=== PATIENT | male | born 1965 ===

== ENCOUNTER 2019-12-15 22:59 | Emergency (ER) | payer BC ==
--- NOTE | 2019-12-15 23:10 | EDM.PDOC ---
ED HPI GENERAL MEDICAL PROBLEM - General Chief Complaint: Back Pain or Injury Stated Complaint: BACK PAIN Time Seen by Provider: 12/15/19 23:07 Source of Information: Reports: Patient History Limitations: Reports: No Limitations - History of Present Illness INITIAL COMMENTS - FREE TEXT/NARRATIVE: Patient is a 54-year-old male who comes in complaining of having severe pain which started somewhat last night and got much worse today when he jumped off his tractor this afternoon. Pain seems to be right lower back and he was seen by PCP who who gave him a prescription for [place] after ordering thoracic and lumbar spine x-rays. These were read as no acute disease. he does have rheumatoid arthritis and there were some arthritic changes. Patient returns to the ER today after he is vomiting and now has severe diffuse abdominal pain and CVA area tenderness. Patient is extremely uncomfortable rates his pain as 10 out of 10 in intensity. He denies any diarrhea or bloody or tarry stools. Patient has no hematuria or dysuria. Never had similar pain and denies any radiation of the pain. The [place] he took earlier did help with the pain but started the vomiting. Has no other complaints back Pain Score (Numeric/FACES): 8 - Related Data Allergies Allergy/AdvReac Type Severity Reaction Status Date / Time Sulfa (Sulfonamide Allergy Rash Verified 12/15/19 23:14 Antibiotics) Home Meds: Home Meds Diclofenac Sodium [Diclo Gel] 1 each TP ASDIRECTED 12/15/19 [History] Hydrocodone/Acetaminophen [Hydrocodone-Acetamin 5-325 mg] 1 tab PO Q6H PRN 12/14 [History] Hydroxychloroquine [Plaquenil] 200 mg PO BID 12/15/19 [History] Methotrexate 0.4 mg PO WEEKLY 12/15/19 [History] methylPREDNISolone [Methylprednisolone] 4 mg PO ASDIRECTED 12/15/19 [History] Cyclobenzaprine [Flexeril] 5 mg PO TID PRN #14 tab 12/16/19 [Rx] Lidocaine 5% [Lidoderm 5%] 1 patch TOP DAILY #14 patch 12/16/19 [Rx] Ondansetron [Zofran ODT] 4 mg PO Q6H PRN #10 tab.dis 12/16/19 [Rx] ED ROS GENERAL - Review of Systems Review Of Systems: Comprehensive ROS is negative, except as noted in HPI. ED EXAM,LOWER BACK PAIN/INJURY - Physical Exam Exam: See Below Exam Limited By: No Limitations General Appearance: Moderate Distress Head: Atraumatic, Normocephalic Neck: Normal Inspection, Supple Respiratory/Chest: No Respiratory Distress, Lungs Clear, Normal Breath Sounds Cardiovascular: Regular Rate, Rhythm, No JVD GI/Abdominal: No Organomegaly, No Mass, Rebound, Tender Back Exam: Normal Inspection, CVA Tenderness (R), Decreased Range of Motion, Muscle Spasm Extremities: Normal Inspection Neurological: Alert, Normal Mood/Affect Skin Exam: Warm, Dry Course - Vital Signs Text/Narrative:: Patient was given IV fluids and several doses of pain meds. His lab work is all unremarkable. CT of his abdomen pelvis shows a large amount of stool and has ascending and transverse colon otherwise no acute disease. His abdominal pain has gotten much better and is almost completely gone but his pain now is in his lumbar area consistent with a sacroiliitis. Putting a Lidoderm patch on him giving him Flexeril. I will give him a prescription for Zofran patient on Flexeril. He has a prescription for [place] from his PCP. I am advising him to take ibuprofen with meals and decrease activity until he feels better. Will encourage him to use mag citrate and MiraLAX for a large amount of stool seen on CT scan. Last Recorded V/S: Last Vital Signs Temp 36.6 C 12/15/19 23:18 Pulse 68 12/16/19 01:18 Resp 18 12/16/19 01:18 BP 127/74 12/16/19 01:18 Pulse Ox 94 L 12/16/19 01:18 - Orders/Labs/Meds Orders: Active Orders 24 hr Category Date Time Status Cyclobenzaprine [Flexeril] Med 12/16/19 01:27 Once 10 mg PO ONETIME ONE Lidocaine 5% [Lidoderm 5%] Med 12/16/19 01:26 Once 700 mg TOP ONETIME ONE Labs: Laboratory Tests 12/15/19 12/15/19 12/15/19 Range/Units 23:35 23:35 23:35 WBC 8.22 (4.0-11.0) K/uL RBC 4.60 (4.50-5.90) M/uL Hgb 14.2 (13.0-17.0) g/dL Hct 41.1 (38.0-50.0) % MCV 89.3 (80.0-98.0) fL MCH 30.9 (27.0-32.0) pg MCHC 34.5 (31.0-37.0) g/dL RDW Std Deviation 39.4 (28.0-62.0) fl RDW Coeff of Mariola 12 (11.0-15.0) % Plt Count 220 (150-400) K/uL MPV 9.40 (7.40-12.00) fL Neut % (Auto) 88.1 H (48.0-80.0) % Lymph % (Auto) 7.7 L (16.0-40.0) % Fergus % (Auto) 4.1 (0.0-15.0) % Eos % (Auto) 0.0 (0.0-7.0) % Baso % (Auto) 0.1 (0.0-1.5) % Neut # (Auto) 7.2 H (1.4-5.7) K/uL Lymph # (Auto) 0.6 (0.6-2.4) K/uL Fergus # (Auto) 0.3 (0.0-0.8) K/uL Eos # (Auto) 0.0 (0.0-0.7) K/uL Baso # (Auto) 0.0 (0.0-0.1) K/uL Nucleated RBC % 0.0 /100WBC Nucleated RBCs # 0 K/uL Lactate 1.2 (0.20-2.00) mmol/L Sodium 137 (136-148) mmol/L Potassium 4.0 (3.5-5.1) mmol/L Chloride 100 (98-107) mmol/L Carbon Dioxide 23.9 (21.0-32.0) mmol/L BUN 15 (7.0-18.0) mg/dL Creatinine 1.0 (0.8-1.3) mg/dL Est Cr Clr Drug Dosing TNP Estimated GFR (MDRD) > 60.0 ml/min Glucose 160 H (74-106) mg/dL Calcium 8.9 (8.5-10.1) mg/dL Total Bilirubin 0.5 (0.2-1.0) mg/dL AST 23 (15-37) IU/L ALT 30 (14-63) IU/L Alkaline Phosphatase 49 (46-116) U/L Total Protein 7.1 (6.4-8.2) g/dL Albumin 4.1 (3.4-5.0) g/dL Globulin 3.0 (2.6-4.0) g/dL Albumin/Globulin Ratio 1.4 (0.9-1.6) Lipase 69 L (73-393) U/L Urine Color Urine Appearance Urine pH (5.0-8.0) Ur Specific [place] (1.001-1.035) Urine Protein (NEGATIVE) mg/dL Urine Glucose (UA) (NEGATIVE) mg/dL Urine Ketones (NEGATIVE) mg/dL Urine Occult Blood (NEGATIVE) Urine Nitrite (NEGATIVE) Urine Bilirubin (NEGATIVE) Urine Urobilinogen (<2.0) EU/dL Ur Leukocyte Esterase (NEGATIVE) Urine RBC (0-2/HPF) Urine WBC (0-5/HPF) Ur Epithelial Cells (NONE-FEW) Urine Bacteria (NEGATIVE) 12/16/19 Range/Units 00:37 WBC (4.0-11.0) K/uL RBC (4.50-5.90) M/uL Hgb (13.0-17.0) g/dL Hct (38.0-50.0) % MCV (80.0-98.0) fL MCH (27.0-32.0) pg MCHC (31.0-37.0) g/dL RDW Std Deviation (28.0-62.0) fl RDW Coeff of Mariola (11.0-15.0) % Plt Count (150-400) K/uL MPV (7.40-12.00) fL Neut % (Auto) (48.0-80.0) % Lymph % (Auto) (16.0-40.0) % Fergus % (Auto) (0.0-15.0) % Eos % (Auto) (0.0-7.0) % Baso % (Auto) (0.0-1.5) % Neut # (Auto) (1.4-5.7) K/uL Lymph # (Auto) (0.6-2.4) K/uL Fergus # (Auto) (0.0-0.8) K/uL Eos # (Auto) (0.0-0.7) K/uL Baso # (Auto) (0.0-0.1) K/uL Nucleated RBC % /100WBC Nucleated RBCs # K/uL Lactate (0.20-2.00) mmol/L Sodium (136-148) mmol/L Potassium (3.5-5.1) mmol/L Chloride (98-107) mmol/L Carbon Dioxide (21.0-32.0) mmol/L BUN (7.0-18.0) mg/dL Creatinine (0.8-1.3) mg/dL Est Cr Clr Drug Dosing Estimated GFR (MDRD) ml/min Glucose (74-106) mg/dL Calcium (8.5-10.1) mg/dL Total Bilirubin (0.2-1.0) mg/dL AST (15-37) IU/L ALT (14-63) IU/L Alkaline Phosphatase (46-116) U/L Total Protein (6.4-8.2) g/dL Albumin (3.4-5.0) g/dL Globulin (2.6-4.0) g/dL Albumin/Globulin Ratio (0.9-1.6) Lipase (73-393) U/L Urine Color YELLOW Urine Appearance CLEAR Urine pH 7.5 (5.0-8.0) Ur Specific [place] 1.020 (1.001-1.035) Urine Protein NEGATIVE (NEGATIVE) mg/dL Urine Glucose (UA) NEGATIVE (NEGATIVE) mg/dL Urine Ketones NEGATIVE (NEGATIVE) mg/dL Urine Occult Blood NEGATIVE (NEGATIVE) Urine Nitrite NEGATIVE (NEGATIVE) Urine Bilirubin NEGATIVE (NEGATIVE) Urine Urobilinogen 0.2 (<2.0) EU/dL Ur Leukocyte Esterase NEGATIVE (NEGATIVE) Urine RBC 0-1 (0-2/HPF) Urine WBC 0-1 (0-5/HPF) Ur Epithelial Cells RARE (NONE-FEW) Urine Bacteria RARE (NEGATIVE) Meds: Medications Discontinued Medications Generic Name Dose Route Start Last Admin Trade Name Freq PRN Reason Stop Dose Admin Fentanyl 50 mcg 12/15/19 23:30 12/15/19 23:45 Fentanyl IVPUSH 12/15/19 23:31 50 mcg ONETIME ONE Administration Hydromorphone HCl 1 mg 12/16/19 00:28 12/16/19 00:37 Dilaudid IVPUSH 12/16/19 00:29 1 mg ONETIME ONE Administration Sodium Chloride 1,000 mls @ 999 mls/hr 12/15/19 23:42 12/15/19 23:44 Normal Saline IV 12/16/19 00:42 999 mls/hr .Bolus ONE Administration Iopamidol 100 ml 12/16/19 01:08 12/16/19 01:09 Isovue-370 (76%) IVPUSH 12/16/19 01:09 100 ml ONETIME STA Administration Ketorolac Tromethamine 30 mg 12/15/19 23:28 12/15/19 23:44 Toradol IVPUSH 12/15/19 23:29 30 mg ONETIME ONE Administration Ondansetron HCl 4 mg 12/15/19 23:27 12/15/19 23:44 Zofran IVPUSH 12/15/19 23:28 4 mg ONETIME ONE Administration Departure - Departure Time of Disposition: 01:35 Disposition: Home, Self-Care 01 Condition: Good Clinical Impression: Sacroiliitis - Discharge Information Referrals: Dane Chowdhury MD [Primary Care Provider] - Forms: ED Department Discharge Additional Instructions: Lidoderm as needed. Pain meds and Flexeril as needed. Decrease activity having pain. [id number] magnesium citrate and MiraLAX for large amount of stool seen on CAT scan. Return to ER if worse. Follow-up with PCP if not improving. Zofran as needed. Care Plan Goals: The following information is given to patients seen in the emergency department who are being discharged to home. This information is to outline your options for follow-up care. We provide all patients seen in our emergency department with a follow-up referral. The need for follow-up, as well as the timing and circumstances, are variable depending upon the specifics of your emergency department visit. If you don't have a primary care physician on staff, we will provide you with a referral. We always advise you to contact your personal physician following an emergency department visit to inform them of the circumstance of the visit and for follow-up with them and/or the need for any referrals to a consulting specialist. The emergency department will also refer you to a specialist when appropriate. This referral assures that you have the opportunity for follow-up care with a specialist. All of these measure are taken in an effort to provide you with optimal care, which includes your follow-up. Under all circumstances we always encourage you to contact your private physician who remains a resource for coordinating your care. When calling for follow-up care, please make the office aware that this follow-up is from your recent emergency room visit. If for any reason you are refused follow-up, please contact the [facility] Emergency Department at and asked to speak to the emergency department charge nurse. Sepsis Event Note - Focused Exam Vital Signs: Vital Signs Temp Pulse Resp BP Pulse Ox 12/16/19 01:18 68 18 127/74 94 L 12/16/19 00:38 70 18 149/86 H 97 12/15/19 23:53 67 20 135/93 H 98 12/15/19 23:18 36.6 C 61 20 134/70 96 Date Exam was Performed: 12/16/19 Time Exam was Performed: 01:28 - My Orders Last 24 Hours: My Active Orders 12/16/19 01:26 Lidocaine 5% [Lidoderm 5%] 700 mg TOP ONETIME ONE 12/16/19 01:27 Cyclobenzaprine [Flexeril] 10 mg PO ONETIME ONE - Assessment/Plan Last 24 Hours: My Active Orders 12/16/19 01:26 Lidocaine 5% [Lidoderm 5%] 700 mg TOP ONETIME ONE 12/16/19 01:27 Cyclobenzaprine [Flexeril] 10 mg PO ONETIME ONE
[2019-12-15] MEDS ORDERED: Ondansetron 4 MG/2 ML SDV IVPUSH ONE (23:27)
[2019-12-15] MEDS ORDERED: Ketorolac 30 MG/ML SDV IVPUSH ONE (23:28)
[2019-12-15] MEDS ORDERED: fentaNYL 50 MCG/ML SDV IVPUSH ONE (23:30)
[2019-12-15] MEDS ORDERED: Sodium Chloride 0.9% 1,000 ML IV ONE (23:42)
[2019-12-16 00:03] LABS: BLOOD UREA NITROGEN,BUN 15 mg/dL (7.0-18.0); CARBON DIOXIDE,CO2 23.9 mmol/L (21.0-32.0); CHLORIDE,CL 100 mmol/L (98-107); GLUCOSE RANDOM 160 mg/dL (74-106); LIPASE 69 U/L (73-393); SODIUM,NA 137 mmol/L (136-148)
[2019-12-16] MEDS ORDERED: HYDROmorphone 1 MG/ML Syringe IVPUSH ONE (00:28)
--- NOTE | 2019-12-16 00:56 | CT ---
INDICATION: Abdominal pain radiating to back TECHNIQUE: CT abdomen and pelvis acquired with IV contrast. COMPARISON: None FINDINGS: Lower chest: Unremarkable. Liver: Hepatic steatosis. Spleen: Unremarkable. Pancreas: Unremarkable. Gallbladder and bile ducts: Unremarkable. Kidneys: Unremarkable. Adrenal glands: Unremarkable. GI tract: Colonic fecal retention involving the ascending and transverse colon. Appendix is normal. Vascular structures: Unremarkable. Lymph nodes: Unremarkable. Miscellaneous: Unremarkable. No free air or significant free fluid. Pelvic Organs: Prostatomegaly. Bones: Unremarkable for age. IMPRESSION: Colonic fecal retention involving the ascending and transverse colon. Hepatic steatosis. Prostatomegaly. Dictated by Jordan Jin MD @ 12/16/2019 12:54:26 AM Please note that all CT scans at this facility use dose modulation, iterative reconstruction, and/or weight-based dosing when appropriate to reduce radiation dose to as low as reasonably achievable. Dictated by: Jordan Jin MD @ 12/16/2019 00:54:37 (Electronically Signed)
[2019-12-16] MEDS ORDERED: Iopamidol 755 Mg/ML 100 ML Bottle IVPUSH STA (01:08)
[2019-12-16] MEDS ORDERED: Lidocaine 5% 700 MG Patch TOP ONE (01:26)
[2019-12-16] MEDS ORDERED: Cyclobenzaprine 10 MG Tab PO ONE (01:27)
== END 2019-12-16 02:05 | disposition home or self-care (01) ==
LOC: MW.ED 22:59
DX: M46.1 Sacroiliitis, not elsewhere classified (principal); Z88.2 Allergy status to sulfonamides
CPT/HCPCS: 36415; 74177; 80053; 81001; 83605; 83690; 85025; 96361; 96374; 96375; 99284; A9270; J1170; J1885; J2405; J3010; J7030; Q9967; 99283